=== PATIENT | female | born 1980 | race Two or more races ===

== ENCOUNTER 2024-08-11 05:38 | Day surgery (SDC) | payer OTHER ==
[2024-08-09 11:31] VITALS: BP 138/81
[~2024-08-11] VITALS: Ht 157.5 cm; Wt 53.5 kg
[2024-08-11] MEDS ORDERED: CEFAZOLIN SODIUM 1,000 MG VIAL IJ ONE (13:00)
[2024-08-11] MEDS ORDERED: POVIDONE-IODINE SCRUB 118 ML BOTT TOP ONE (13:00)
[2024-08-11] MEDS ORDERED: BUPIVACAINE HCL 30 ML VIAL IJ ONE (13:00)
[2024-08-11] MEDS ORDERED: POVIDONE-IODINE 118 ML BOTT TOP ONE (13:15)
[2024-08-11] MEDS ORDERED: GENTAMICIN SULFATE 40 MG/ML VIAL IR ONE (13:15)
[2024-08-11] MEDS ORDERED: MORPHINE SULFATE 4 MG/ML VIAL IV ONE ×2 (16:25→16:55)
== END 2024-08-11 18:30 | disposition home or self-care (01) ==
LOC: CIR.AMB 05:38
PROVIDERS: ATTEND Surgery
DX: C50.311 Malignant neoplasm of lower-inner quadrant of right female breast (principal); R59.0 Localized enlarged lymph nodes; D24.1 Benign neoplasm of right breast; D48.62 Neoplasm of uncertain behavior of left breast; Z90.13 Acquired absence of bilateral breasts and nipples; N65.1 Disproportion of reconstructed breast

== ENCOUNTER 2024-12-01 05:00 | Day surgery (SDC) | payer OTHER ==
[2024-11-29 10:59] VITALS: BP 122/83
[~2024-12-01] VITALS: Ht 154.9 cm; Wt 54.4 kg
[2024-12-01] MEDS ORDERED: CLINDAMYCIN PHOSPHATE 150 MG/ML (900mg) IV ONE (10:15)
[2024-12-01] MEDS ORDERED: POVIDONE-IODINE SCRUB 118 ML BOTT TOP ONE (10:15)
[2024-12-01] MEDS ORDERED: GENTAMICIN SULFATE 40 MG/ML VIAL IR ONE (10:15)
[2024-12-01] MEDS ORDERED: TRANEXAMIC ACID 100MG/1ML (1000MG) AMPUL IV ONE (10:15)
[2024-12-01] MEDS ORDERED: SUGAMMADEX SODIUM 200 MG/2 ML VIAL IV ONE (10:15)
[2024-12-01] MEDS ORDERED: CEFAZOLIN SODIUM 1,000 MG VIAL IJ ONE (10:15)
[2024-12-01] MEDS ORDERED: POVIDONE-IODINE 118 ML BOTT TOP ONE (10:15)
[2024-12-01] MEDS ORDERED: MORPHINE SULFATE 4 MG/ML VIAL IV ONE ×2 (10:35→11:05)
[2024-12-01] MEDS ORDERED: MORPHINE SULFATE 4 MG/ML VIAL IV PRN (10:45)
[2024-12-01] MEDS ORDERED: ONDANSETRON HCL 2 MG/ML VIAL IV PRN (10:45)
== END 2024-12-01 13:05 | disposition home or self-care (01) ==
LOC: CIR.AMB 05:00
PROVIDERS: ATTEND Plastic Surgery
DX: C50.311 Malignant neoplasm of lower-inner quadrant of right female breast (principal); N64.89 Other specified disorders of breast; N65.1 Disproportion of reconstructed breast; Z90.13 Acquired absence of bilateral breasts and nipples